=== PATIENT | male | born 1985 | race Asian ===

== ENCOUNTER 2023-08-08 02:40 | Emergency (ER) | payer OTHER ==
[~2023-08-08] VITALS: Ht 172.7 cm; Wt 81.6 kg
[2023-08-08] MEDS ORDERED: KETO10TA2 PO (04:09)
[2023-08-08] MEDS ORDERED: CEPH500C2 PO (04:09)
[2023-08-08] MEDS ORDERED: KETOROLAC TROMETHAMINE INJ 30 MG/ML VIAL ONE (04:14)
[2023-08-08] MEDS ORDERED: CEPHALEXIN MONOHYDRATE 500 MG CAPSULE PO ONE (04:14)
[2023-08-08] MEDS: CEPHALEXIN MONOHYDRATE 500 MG CAPSULE PO ONE (04:15)
[2023-08-08] MEDS: KETOROLAC TROMETHAMINE INJ 60 MG/2 ML VIAL IM ONE (04:16)
[2023-08-08 04:33] VITALS: BP 122/79; TEMP 97.8; O2SAT 99
== END 2023-08-08 04:34 | disposition home or self-care (01) ==
LOC: ER 02:45
DX: S90.465A Insect bite (nonvenomous), left lesser toe(s), initial encounter (principal); L03.032 Cellulitis of left toe; W57.XXXA Bitten or stung by nonvenomous insect and other nonvenomous arthropods, initial encounter; Y93.89 Activity, other specified; Y92.89 Other specified places as the place of occurrence of the external cause; Y99.8 Other external cause status
CPT/HCPCS: 99283; 96372; J1885